=== PATIENT | female | born 2000 | race Caucasian/White ===

== ENCOUNTER 2019-06-20 08:33 | Outpatient (CLI) | payer BC ==
--- NOTE | 2019-06-20 11:29 | MRI ---
LUMBAR SPINE MRI WITHOUT IV CONTRAST: Date: 06/20/2019 HISTORY: Low back pain, pain and stiffness radiating down left hip and leg for several months. FINDINGS: Conus medullaris region s unremarkable. No evidence for abnormal marrow signal. No focal significant abnormal desiccation changes. T12-L1, L1-L2, L2-L3, and L3-L4 disc levels are unremarkable, without canal, lateral recess, or ida inal stenosis. At L4-L5, there is some very minute desiccation change, but no evidence for associated stenosis. At L5-S1, there is a focal central protrusion with some compression of the ventral thecal sac and mil d canal stenosis and lateral recess stenosis without significant foraminal stenosis. IMPRESSION: 1. Small central protrusion at L5-S1 with some central canal and lateral recess stenosis and allyson ty of the thecal sac. 2. Mild desiccation changes at L4-L5. 3. No evidence for other significant acute process. POS: [facility]
== END 2019-06-20 08:34 | disposition home or self-care (01) ==
LOC: SCSMRI 08:33
PROVIDERS: ATTEND Family Medicine
DX: M54.42 Lumbago with sciatica, left side (principal); M51.17 Intervertebral disc disorders with radiculopathy, lumbosacral region; M48.07 Spinal stenosis, lumbosacral region
CPT/HCPCS: 72148

== ENCOUNTER 2019-10-16 08:57 | Outpatient (CLI) | payer BC ==
--- NOTE | 2019-10-16 10:18 | CT ---
CT abdomen and pelvis with IV and oral contrast HISTORY: Abdominal pain. Chronic vomiting. Nausea. FINDINGS: The lung bases are clear. The liver, spleen, kidneys, adrenal glands, and pancreas have a normal CT appearance no enlarged lymp h nodes or free fluid. Urinary bladder is unremarkable. Follicles arise from the ovaries. No evidence of bowel obstruction or inflammation. Appendix not visualized, possibly surgically absent . Mild posterior disc bulge at the lumbosacral junction. IMPRESSION : No evidence of bowel obstruction or other significant abnormalities.
== END 2019-10-16 08:58 | disposition home or self-care (01) ==
LOC: SCSCT 08:57
PROVIDERS: ATTEND Physician Assistant Medical
DX: R11.10 Vomiting, unspecified (principal); R51 Headache
CPT/HCPCS: 74177